=== PATIENT | female | born 1960 ===

== ENCOUNTER 2018-02-12 19:55 | Emergency (ER) | payer OTHER ==
[2018-02-12 19:55] VITALS: BMI 27.4
--- NOTE | 2018-02-12 20:53 | C.PDOC ---
Time Seen by Provider: 02/12/18 20:06 Chief Complaint (Nursing): Allergic Reaction History Per: Patient, EMS, Family Onset/Duration Of Symptoms: Hrs (1) Current Symptoms Are (Timing): Still Present Possible Cause: Food (Sesame seed candy) Associated Symptoms: Skin Rash, Dyspnea, Itching Home/EMS Treatment: Benadryl Severity: Moderate Additional History Per: Prior Records Past Medical History Reviewed: Historical Data, Nursing Documentation, Vital Signs Vital Signs: Last Vital Signs Temp 98.9 F 02/12/18 20:00 Pulse 82 02/12/18 20:00 Resp 20 02/12/18 20:00 BP 124/74 02/12/18 20:28 Pulse Ox 95 02/12/18 20:53 - Medical History PMH: Arthritis, Asthma, HTN - [facility] Procedures ENDOSC POLYPECTOMY OF LG INTEST (04/19/13) ESOPHAGOGASTRODUODENOSCOPY [EGD] W/CLOSED BIOPSY (04/12/13) INJECT/INFUSE NEC (08/19/14) Family History: States: Unknown Family Hx - Social History Hx Tobacco Use: No Hx Alcohol Use: No Hx Substance Use: No Review Of Systems Except As Marked, All Systems Reviewed And Found Negative. Constitutional: Negative for: Fever, Weakness ENT: Positive for: Throat Swelling Cardiovascular: Negative for: Chest Pain Respiratory: Negative for: Hemoptysis Gastrointestinal: Negative for: Vomiting, Abdominal Pain Musculoskeletal: Negative for: Neck Pain Skin: Positive for: Rash Neurological: Negative for: Weakness, Numbness Physical Exam - Physical Exam Appears: Non-toxic, No Acute Distress Skin: Warm, Dry, Rash (erythema) Head: Atraumatic, Normacephalic Eye(s): bilateral: PERRL, EOMI Throat: Normal Neck: Normal ROM, Supple Cardiovascular: Rhythm Regular Respiratory: Normal Breath Sounds, No Accessory Muscle Use Gastrointestinal/Abdominal: Soft, No Tenderness Extremity: Normal ROM, No Pedal Edema Neurological/Psych: Oriented x3, Normal Speech, Normal Motor, Normal Sensation ED Course And Treatment O2 Sat by Pulse Oximetry: 95 Pulse Ox Interpretation: Normal Progress - Interventions Interventions:: Observation - Medications Administered Intravenous: Corticosteroid, H-2 pradip - Data Reviewed Data Reviewed: Old records - Patient Status Patient status: Mostly improved - Continuity of Care Discussed patient case with:: Patient, Family-HIPPA compliant, ED Nurse - Patient Plan Patient Plan: Discharge, F/U with PCP, Continue present meds Disposition Counseled Patient/Family Regarding: Diagnosis, Need For Followup, Rx Given - Disposition Referrals: Radha Higuera MD [IM] - Disposition: HOME/ ROUTINE Disposition Time: 22:07 Condition: IMPROVED Additional Instructions: Avoid anything containing sesame. Follow up with an strategic planning specialist for further evaluation and treatment. Return to the ER if you develop throat swelling, trouble breathing or swallowing, worsening of symptoms or if you have any other concerns. Prescriptions: Epinephrine HCl [Epipen Auto-Injector] 0.3 mg MR ONCE PRN #1 ml PRN Reason: Anaphylaxis predniSONE [predniSONE Tab] 2 tab PO DAILY #6 tab Instructions: Food Allergy (ED) Forms: [facility] (Thai) - Clinical Impression Clinical Impression: Allergic reaction to food
[2018-02-12 22:21] VITALS: BP 130/75; PULSE 70; RESP 18; TEMP 97.9; O2SAT 98
== END 2018-02-12 22:26 | disposition home or self-care (01) ==
LOC: C.ER 19:55
DX: T78.1XXA Other adverse food reactions, not elsewhere classified, initial encounter (principal)
CPT/HCPCS: 96374; 96375; 99284; J2930